=== PATIENT | male | born 1965 | race Caucasian/White ===

== ENCOUNTER → 2022-03-18 | Outpatient (CLI) | payer BC ==
[~2022-03-18] MED LIST: ASPIRIN EC325 MG PO; COZAAR100 MG PO; DICLOFENAC POTA50 MG PO; HYDROCHLOROTHIA25 MG PO; LIPITOR TAB 2020 MG PO; LOSARTAN-HCTZ1 EACH PO; NORVASC5 MG PO; PERCOCET 5/325 T1 EA PO
== END ==
LOC: KOH-I 15:07
DX: M25.572 Pain in left ankle and joints of left foot (principal)
CPT/HCPCS: 73610

== ENCOUNTER → 2022-04-03 | Outpatient (CLI) | payer BC | LOC: KOH-I 03-25 14:00 | DX: R60.0 Localized edema (principal); I82.90 Acute embolism and thrombosis of unspecified vein; M79.662 Pain in left lower leg | CPT/HCPCS: 73700; 93971 ==